=== PATIENT | female | born 2000 | race Caucasian/White ===

== ENCOUNTER → 2021-03-17 | Outpatient (CLI) | payer OTHER, MEDICAID ==
--- NOTE | 2021-03-17 10:01 | REP ---
INDICATION: ANATOMY SCAN COMPARISON: None. TECHNIQUE: Transabdominal obstetrical ultrasound with color Doppler evaluation. FINDINGS: Examination demonstrates a single live intrauterine in transverse presentation. motion is identified by technologist. Placenta is noted anterior and grade 1 without evidence for placenta previa or abruption. Amniotic fluid volume is normal. Cervix measures 4.5 cm in length and appears closed.. Selected gestational age: 20 weeks 2 days with GERMANIA 08/02/2021. Gestational age by current measurements 21 weeks 2 days with GERMANIA 07/26/2021. FHR equals 135 beats per minute. BPD: 5.1 cm at 21 weeks 3 days HC: 19.2 cm at 21 weeks 3 days AC: 15.9 cm at 21 weeks 0 days FL: 3.5 cm at 21 weeks 1 day HL: 3.3 cm at 21 weeks 0 days HC/AC: 1.21 Estimated weight 402 grams Anatomical assessment demonstrates normal structures including cranium, choroid plexus, cavum, cerebellum/posterior fossa, facial features, lungs, four-chamber heart/ventricular outflow tracts, diaphragm, stomach, cord insertion/three-vessel cord, kidneys/bladder, and extremities. IMPRESSION: Single live intrauterine in transverse lie. Limited assessment of the spine due to positioning. Remainder of the anatomical assessment is complete and normal. <Electronically signed by Torrey Brown > 03/17/21 [id number]
== END ==
LOC: M WHC 08:06
PROVIDERS: ATTEND Obstetrics & Gynecology
DX: Z36.89 Encounter for other specified antenatal screening (principal); Z3A.18 18 weeks gestation of pregnancy

== ENCOUNTER → 2021-04-11 | Outpatient (CLI) | payer OTHER, MEDICAID ==
--- NOTE | 2021-04-11 09:54 | REP ---
INDICATION: F/U ANATOMY. COMPARISON: 03/17/2021. TECHNIQUE: Real-time sonographic evaluation of the gravid uterus performed. FINDINGS: Estimated gestational age is23 weeks 6 days, EDC 08/02/2021. Today's measurements indicate appropriate growth. heart rate 140 beats per minute. Biometry chart: BPD: 63 mm, 25 weeks 2 days, 81st percentile. HC: 228 mm, 24 weeks 6 days, 71st percentile AC: 196 mm, 24 weeks 2 days, 58th percentile Femur length: 42 mm, 23 weeks 4 days, 43rd percentile HC to AC ratio: 1.17, normal range 1.03-1.22. Estimated weight: 662g, 53rd percentile. The spine is visualized and is grossly unremarkable. IMPRESSION: Viable single intrauterine gestation as above. The spine is visualized and is grossly unremarkable. <Electronically signed by Juno Heard > 04/11/21 [id number]
== END ==
LOC: M WHC 07:00
PROVIDERS: ATTEND Obstetrics & Gynecology
DX: Z36.9 Encounter for antenatal screening, unspecified (principal); Z3A.25 25 weeks gestation of pregnancy

== ENCOUNTER → 2021-05-13 | Outpatient (CLI) | payer MEDICAID, OTHER ==
[2021-05-13 13:23] LABS: HEMATOCRIT 36.5 % (36.0-47.0); HEMOGLOBIN 12.1 g/dl (12.0-15.5); MEAN CORPUSCULAR HEMOGLOBIN 30.3 pg (27.0-33.0); MEAN CORPUSCULAR HGB CONC 33.2 g/dl (32.0-36.5); MEAN CORPUSCULAR VOLUME 91.5 fl (80.0-96.0); PLATELET COUNT, AUTOMATED 188 10^3/uL (150-450); RED BLOOD COUNT 3.99 10^6/uL (4.00-5.40); WHITE BLOOD COUNT 8.7 10^3/uL (4.0-10.0)
== END ==
LOC: M PLALAB 09:31
PROVIDERS: ATTEND Advanced Practice Midwife
DX: Z34.02 Encounter for supervision of normal first pregnancy, second trimester (principal)

== ENCOUNTER → 2021-05-13 | Outpatient (CLI) | payer MEDICAID, OTHER | LOC: M PLALAB 09:33 | PROVIDERS: ATTEND Obstetrics & Gynecology | DX: Z53.20 Procedure and treatment not carried out because of patient's decision for unspecified reasons (principal) ==

== ENCOUNTER → 2021-07-08 | Outpatient (REF) | payer OTHER, MEDICAID | LOC: M SFHCWAGY 12:41 | PROVIDERS: ATTEND Advanced Practice Midwife | DX: Z34.03 Encounter for supervision of normal first pregnancy, third trimester (principal) ==

== ENCOUNTER → 2021-07-23 | Outpatient (CLI) | payer OTHER, MEDICAID, MEDICARE | LOC: M LABSMTC 09:43 | PROVIDERS: ATTEND Anesthesiology | DX: U07.1 COVID-19 (principal) ==

== ENCOUNTER 2021-07-28 05:06 | Inpatient (IN) | payer OTHER, MEDICAID ==
[2021-07-28] VITALS (7 sets, daily range): BP systolic 115–139; BP diastolic 66–86
[~2021-07-28] VITALS: Ht 177.8 cm; Wt 95.5 kg
[2021-07-28] MEDS ORDERED: BICITRA 30ML SOLN UDC PO ONE (05:25)
[2021-07-28] MEDS ORDERED: OXYTOCIN INJ 10 UNITS/ML VIAL (J2590) IM PRN (05:25)
[2021-07-28] MEDS ORDERED: OXYTOCIN DRIP 30 UNITS in IV 1 EA IV PRN ×4 (05:25)
[2021-07-28] MEDS ORDERED: TRANEXAMIC ACID INJection 1,000 MG in NS 100 ML IV PRN (05:25)
[2021-07-28] MEDS ORDERED: LACTATED RINGER'S 1000 ML IV STA (05:25)
[2021-07-28] MEDS ORDERED: METHYLERGONOVINE MALEATE 0.2 MG/ML VIAL (J2210) IM PRN (05:25)
[2021-07-28] MEDS ORDERED: LR 1,000 ML IV SCH (05:25)
[2021-07-28] MEDS ORDERED: CARBOPROST TROMETHAMINE 250 MCG/ML AMP IM PRN (05:25)
[2021-07-28] MEDS ORDERED: ceFAZolin SOD 2 GM in IV 1 EA IV ONE (05:25)
[2021-07-28] MEDS ORDERED: PRENTAB9 PO (06:12)
[2021-07-28 06:18] LABS: HEMATOCRIT 35.5 % (36.0-47.0); HEMOGLOBIN 11.7 g/dl (12.0-15.5); MEAN CORPUSCULAR HEMOGLOBIN 28.7 pg (27.0-33.0); MEAN CORPUSCULAR VOLUME 87.2 fl (80.0-96.0); PLATELET COUNT, AUTOMATED 170 10^3/uL (150-450); RED BLOOD COUNT 4.07 10^6/uL (4.00-5.40); WHITE BLOOD COUNT 11.7 10^3/uL (4.0-10.0)
[2021-07-28] MEDS ORDERED: MORPHINE PRES-FREE INJ 10 MG/10 ML VIAL (J2274) As Ordered ONE (07:51)
[2021-07-28] MEDS ORDERED: ONDANSETRON 4MG/2ML VIAL As Ordered ONE (07:51)
[2021-07-28] MEDS ORDERED: METOCLOPRAMIDE INJ 10MG/2ML VIAL (J2765 PER 1) IV PRN (08:00)
[2021-07-28] MEDS ORDERED: NALBUPHINE HCL 10 MG/ML AMP (J2300) IV PRN (08:00)
[2021-07-28] MEDS ORDERED: diphenhydrAMINE 50MG/ML VIAL (J1200) IV PRN (08:00)
[2021-07-28] MEDS ORDERED: ONDANSETRON 4MG/2ML VIAL IV PRN ×2 (08:00→09:05)
[2021-07-28] MEDS ORDERED: NALOXONE INJ 0.4MG/1ML VIAL (J2310 PER 1MG) IV PRN ×2 (08:00)
[2021-07-28] MEDS ORDERED: ePHEDrine SULFATE 25 MG/5 ML(5MG/ML) SYRINGE As Ordered ONE (08:05)
[2021-07-28] MEDS ORDERED: OXYTOCIN 30 UNITS IN 0.9% NaCl 500ML IV BAG (J2590) As Ordered ONE ×2 (08:10→09:14)
[2021-07-28] MEDS ORDERED: KETOROLAC 60MG 2ML VIAL As Ordered ONE (08:46)
[2021-07-28] MEDS ORDERED: SIMETHICONE 80MG CHEW TAB PO PRN (09:05)
[2021-07-28] MEDS ORDERED: OXYTOCIN DRIP 30 UNITS in IV 1 EA IV SCH (09:05)
[2021-07-28] MEDS ORDERED: RHOGAM 300 MCG (1500 IU) INJ (J2790) IM SCH (09:05)
[2021-07-28] MEDS ORDERED: MEASLES,MUMPS,RUBELLA VACCINE INJ (MMR-II) (90707) SC SCH (09:05)
[2021-07-28] MEDS ORDERED: IBUP80TA PO (09:11)
[2021-07-28] MEDS ORDERED: PERCOCET PO (09:11)
[2021-07-28] MEDS ORDERED: DOCU100C16 PO (09:11)
[2021-07-28] MEDS ORDERED: PERCOCET 5MG/325MG TAB PO PRN (09:30)
[2021-07-28] MEDS ORDERED: fentaNYL 100 MCG/2 ML INJECTION (J3010) IV PRN (09:30)
[2021-07-28] MEDS: LR 1,000 ML IV SCH ×2 (13:22→17:05)
[2021-07-28] MEDS: KETOROLAC 30 MG/ML 1ML VIAL IV SCH ×2 (15:02→20:32)
[2021-07-28] MEDS: DOCUSATE SODIUM 100MG CAPSULE PO SCH (20:32)
[2021-07-29] MEDS: PERCOCET 5MG/325MG TAB PO PRN ×3 (00:37→19:57)
[2021-07-29] MEDS: LR 1,000 ML IV SCH (01:05)
[2021-07-29 02:00] VITALS: BP 139/79
[2021-07-29] MEDS: KETOROLAC 30 MG/ML 1ML VIAL IV SCH (03:19)
[2021-07-29 06:00] VITALS: BP 121/67
[2021-07-29 08:08] LABS: HEMATOCRIT 29.7 % (36.0-47.0); MEAN CORPUSCULAR HGB CONC 32.3 g/dl (32.0-36.5); MEAN CORPUSCULAR VOLUME 89.7 fl (80.0-96.0); PLATELET COUNT, AUTOMATED 138 10^3/uL (150-450); RED BLOOD COUNT 3.31 10^6/uL (4.00-5.40)
[2021-07-29 08:19] LABS: HEMOGLOBIN 9.6 g/dl (12.0-15.5)
[2021-07-29] MEDS: DOCUSATE SODIUM 100MG CAPSULE PO SCH ×2 (08:43→19:55)
[2021-07-29] MEDS: PRENATAL VITAMINS CHEWABLE TABLET PO SCH (08:43)
[2021-07-29 10:00] VITALS: BP 125/64
[2021-07-29] MEDS: IBUPROFEN 800 MG TAB PO SCH ×2 (10:30→18:45)
[2021-07-29 14:00] VITALS: BP 132/64
[2021-07-29 18:00] VITALS: BP 144/85
[2021-07-29 22:00] VITALS: BP 127/60
[2021-07-30 02:00] VITALS: BP 119/59
[2021-07-30] MEDS: IBUPROFEN 800 MG TAB PO SCH ×2 (02:47→11:36)
[2021-07-30 06:00] VITALS: BP 127/73
[2021-07-30] MEDS: PRENATAL VITAMINS CHEWABLE TABLET PO SCH (09:01)
[2021-07-30] MEDS: DOCUSATE SODIUM 100MG CAPSULE PO SCH (09:01)
[2021-07-30] MEDS: PERCOCET 5MG/325MG TAB PO PRN (09:02)
== END 2021-07-30 13:05 | disposition home or self-care (01) | DRG 788 ==
LOC: M LDI 05:06 → EDSTATUS 07:30 → M OBS 11:28
PROVIDERS: ADMIT Obstetrics & Gynecology; ATTEND Obstetrics & Gynecology
PROC: 10D00Z1 Extraction of Products of Conception, Low, Open Approach (ICD-10-PCS; principal; 2021-07-28 07:30)
DX: O32.1XX0 Maternal care for breech presentation, not applicable or unspecified (principal); Z3A.39 39 weeks gestation of pregnancy; Z37.0 Single live birth

== ENCOUNTER → 2023-06-08 | Outpatient (REF) | payer OTHER, MEDICAID, MEDICARE ==
[~2023-06-08] MED LIST: DOCU100C16 PO; IBUP80TA PO; PERCOCET PO; PRENTAB9 PO
[2023-06-08 16:37] LABS: APPEARANCE, URINE CLOUDY (CLEAR); BACTERIA, URINE AUTO 1+ (NEGATIVE); BILIRUBIN, URINE AUTO NEGATIVE (NEGATIVE); BLOOD, URINE BLOOD 1+ (NEGATIVE); COLOR, URINE AMBER (YELLOW); GLUCOSE, URINE (UA) AUTO NEGATIVE (NEGATIVE); KETONE, URINE AUTO 1+ mg/dL (NEGATIVE); LEUKOCYTE ESTERASE, URINE AUTO 3+ (NEGATIVE); MUCUS, URINE SMALL (NEGATIVE); NITRITE, URINE AUTO NEGATIVE (NEGATIVE); PROTEIN, URINE AUTO 2+ mg/dL (NEGATIVE); RBC, URINE AUTO 76 /HPF (0-3); SPECIFIC GRAVITY URINE AUTO 1.021 (1.002-1.035); SQUAMOUS EPITHELIAL CELL UR AU 18 /HPF (0-6); UROBILINOGEN, URINE AUTO 0.2 mg/dL (0.0-2.0); WBC, URINE AUTO TNTC /HPF (0-3)
== END ==
LOC: M LAB REF 15:41
PROVIDERS: ATTEND Physician Assistant
DX: N30.01 Acute cystitis with hematuria (principal)

== ENCOUNTER → 2023-06-16 | Outpatient (CLI) | payer OTHER, MEDICAID ==
[2023-06-16 10:52] LABS: HEMATOCRIT 37.5 % (36.0-47.0); HEMOGLOBIN 12.5 g/dl (12.0-15.5); MEAN CORPUSCULAR HEMOGLOBIN 29.3 pg (27.0-33.0); MEAN CORPUSCULAR HGB CONC 33.3 g/dl (32.0-36.5); MEAN CORPUSCULAR VOLUME 87.8 fl (80.0-96.0); PLATELET COUNT, AUTOMATED 189 10^3/uL (150-450); RED BLOOD COUNT 4.27 10^6/uL (4.00-5.40)
[2023-06-16 11:32] LABS: HIV 1&2 SCREEN NEGATIVE (NEGATIVE)
[2023-06-16 11:39] LABS: HEPATITIS C VIRUS ABY INDEX 0.02 INDEX (<0.8)
== END ==
LOC: M PLALAB 07:14
PROVIDERS: ATTEND Advanced Practice Midwife
DX: O34.211 Maternal care for low transverse scar from previous cesarean delivery (principal)

== ENCOUNTER → 2023-08-25 | Outpatient (REF) | payer OTHER, MEDICAID, MEDICARE ==
[2023-08-25 15:40] LABS: CHLAMYDIA DNA AMPLIFICATION NEGATIVE (NEGATIVE); GC DNA AMPLIFICATION NEGATIVE (NEGATIVE)
== END ==
LOC: M SFHCWAGY 12:48
PROVIDERS: ATTEND Advanced Practice Midwife
DX: O34.211 Maternal care for low transverse scar from previous cesarean delivery (principal)

== ENCOUNTER → 2023-09-01 | Outpatient (CLI) | payer OTHER, MEDICAID | LOC: M WHC 14:26 | PROVIDERS: ATTEND Obstetrics & Gynecology | DX: O34.219 Maternal care for unspecified type scar from previous cesarean delivery (principal) ==

== ENCOUNTER → 2023-10-05 | Outpatient (CLI) | payer BC | LOC: M PLALAB 08:07 | PROVIDERS: ATTEND Obstetrics & Gynecology | DX: O34.211 Maternal care for low transverse scar from previous cesarean delivery (principal) ==

== ENCOUNTER → 2023-10-05 | Outpatient (CLI) | payer BC | LOC: M WHC 06:52 | PROVIDERS: ATTEND Obstetrics & Gynecology | DX: O34.211 Maternal care for low transverse scar from previous cesarean delivery (principal) ==

== ENCOUNTER → 2023-11-03 | Outpatient (CLI) | payer BC, OTHER ==
[~2023-11-03] MED LIST changes: +CALC500C15 PO; +NITR-67 PO
[2023-11-03 09:49] LABS: HEMATOCRIT 33.8 % (36.0-47.0); HEMOGLOBIN 11.2 g/dl (12.0-15.5); MEAN CORPUSCULAR HEMOGLOBIN 29.1 pg (27.0-33.0); MEAN CORPUSCULAR HGB CONC 33.1 g/dl (32.0-36.5); MEAN CORPUSCULAR VOLUME 87.8 fl (80.0-96.0); PLATELET COUNT, AUTOMATED 177 10^3/uL (150-450); RED BLOOD COUNT 3.85 10^6/uL (4.00-5.40); WHITE BLOOD COUNT 8.2 10^3/uL (4.0-10.0)
== END ==
LOC: M PLALAB 08:16
PROVIDERS: ATTEND Obstetrics & Gynecology
DX: O34.211 Maternal care for low transverse scar from previous cesarean delivery (principal)

== ENCOUNTER → 2023-11-03 | Outpatient (REF) | payer OTHER | LOC: M LAB REF 08:53 | PROVIDERS: ATTEND Physician Assistant | DX: R30.0 Dysuria (principal) ==

== ENCOUNTER 2023-11-04 13:49 | Outpatient (CLI) | payer BC, OTHER ==
[~2023-11-04] VITALS: Ht 177.8 cm; Wt 95.1 kg
[~2023-11-04 13:49] MED LIST changes: -CALC500C15 PO; -NITR-67 PO
[2023-11-04 14:10] VITALS: BP 123/74
[2023-11-04] MEDS ORDERED: CALC500C15 PO (14:16)
[2023-11-04] MEDS ORDERED: HOME MED LIST COMPLETE! XX SCH (14:20)
[2023-11-04] MEDS ORDERED: NITR-67 PO (15:05)
== END 2023-11-04 15:05 ==
LOC: M LDO 13:49
PROVIDERS: ATTEND Obstetrics & Gynecology
DX: O23.13 Infections of bladder in pregnancy, third trimester (principal); O34.219 Maternal care for unspecified type scar from previous cesarean delivery; Z3A.30 30 weeks gestation of pregnancy
CPT/HCPCS: 59025; 81001; 87088; 87186; G0463

== ENCOUNTER → 2023-12-07 | Outpatient (REF) | payer BC, OTHER, MEDICAID ==
[~2023-12-07] MED LIST changes: +CALC500C15 PO; +NITR-67 PO
== END ==
LOC: M SFHCWAGY 15:04
PROVIDERS: ATTEND Specialist
DX: Z34.83 Encounter for supervision of other normal pregnancy, third trimester (principal); R30.0 Dysuria

== ENCOUNTER 2023-12-19 23:16 | Outpatient (CLI) | payer BC, OTHER, MEDICAID ==
[~2023-12-19] VITALS: Ht 177.8 cm; Wt 101.3 kg
[2023-12-19 23:23] VITALS: BP 140/82
[2023-12-20 00:15] VITALS: BP 134/76
[2023-12-20] MEDS ORDERED: AMOX875T2 PO (01:03)
[2023-12-20] MEDS: AUGMENTIN 875 MG TAB PO ONE (01:16)
== END 2023-12-20 01:17 | disposition home or self-care (01) ==
LOC: M LDO 23:16
PROVIDERS: ATTEND Obstetrics & Gynecology
DX: O23.13 Infections of bladder in pregnancy, third trimester (principal); O34.219 Maternal care for unspecified type scar from previous cesarean delivery; Z3A.37 37 weeks gestation of pregnancy
CPT/HCPCS: 59025; 81001; 87086; G0463

== ENCOUNTER 2023-12-31 05:30 | Inpatient (IN) | payer BC, OTHER ==
[~2023-12-31] VITALS: Ht 177.8 cm; Wt 99.3 kg
[2023-12-31] VITALS (9 sets, daily range): BP systolic 118–138; BP diastolic 59–77; TEMP 96.8; O2SAT 99–100
[~2023-12-31 05:30] MED LIST changes: +AMOX875T2 PO
[2023-12-31 06:33] LABS: HEMATOCRIT 31.2 % (36.0-47.0); HEMOGLOBIN 9.9 g/dl (12.0-15.5); MEAN CORPUSCULAR HEMOGLOBIN 26.1 pg (27.0-33.0); MEAN CORPUSCULAR HGB CONC 31.7 g/dl (32.0-36.5); MEAN CORPUSCULAR VOLUME 82.3 fl (80.0-96.0); PLATELET COUNT, AUTOMATED 192 10^3/uL (150-450); RED BLOOD COUNT 3.79 10^6/uL (4.00-5.40); WHITE BLOOD COUNT 10.3 10^3/uL (4.0-10.0)
[2023-12-31] MEDS: LACTATED RINGER'S 1000 ML IV STA (06:51)
[2023-12-31] MEDS: LR 1,000 ML IV SCH ×2 (06:54→13:00)
[2023-12-31] MEDS ORDERED: PHENYLephrine 500MCG 5ML (100MCG/ML) SYRINGE As Ordered ONE (07:17)
[2023-12-31] MEDS ORDERED: OXYTOCIN 30UNITS IN 0.9% NaCl 500ML IV BAG As Ordered ONE (07:17)
[2023-12-31] MEDS ORDERED: ePHEDrine SULFATE 25 MG/5 ML(5MG/ML) SYRINGE As Ordered ONE (07:17)
[2023-12-31] MEDS ORDERED: MORPHINE PRES-FREE INJ 10 MG/10 ML VIAL As Ordered ONE (07:18)
[2023-12-31] MEDS: ceFAZolin SOD 2 GM in IV 1 EA IV ONE (07:27)
[2023-12-31] MEDS: BICITRA 30ML SOLN UDC PO ONE (07:36)
[2023-12-31] MEDS ORDERED: ONDANSETRON 4MG 2ML VIAL As Ordered ONE (08:05)
[2023-12-31] MEDS ORDERED: KETOROLAC 60MG 2ML VIAL As Ordered ONE (08:05)
[2023-12-31] MEDS ORDERED: SIMETHICONE 80MG CHEW TAB PO PRN (08:35)
[2023-12-31] MEDS ORDERED: RHO(D) IMMUNE GLOBULIN/MALTOSE 500MCG(2500IU)/2.2ML VIAL (WINRHO) IM SCH (08:35)
[2023-12-31] MEDS ORDERED: PERCOCET 5MG/325MG TAB PO PRN (08:35)
[2023-12-31] MEDS ORDERED: ONDANSETRON 4MG 2ML VIAL IV PRN (08:35)
[2023-12-31] MEDS ORDERED: OXYC1TAB23 PO (08:41)
[2023-12-31] MEDS ORDERED: IBUP80TA PO (08:41)
[2023-12-31 08:44] LABS: CORD GAS ABE A -4.4; CORD GAS HCO3 A 22.3 MMOL/L; CORD GAS O2 SAT A 77.7 %; CORD GAS PCO2 A 46.5 mmHg; CORD GAS PH A 7.298 UNITS; CORD GAS PO2 A 34.2 mmHg; CORD GAS SBC A 20.4 MMOL/L; CORD GAS TCO2 A 23.7 MMOL/L
[2023-12-31] MEDS ORDERED: **NOTE PATIENT COMMENT** MISC XX SCH (08:45)
[2023-12-31] MEDS ORDERED: NALOXONE INJ 0.4MG/1ML VIAL IV PRN ×2 (08:45)
[2023-12-31] MEDS ORDERED: METOCLOPRAMIDE INJ 10MG/2ML VIAL IV PRN (08:45)
[2023-12-31] MEDS: OXYTOCIN DRIP 30 UNITS in IV 1 EA IV SCH (08:45)
[2023-12-31 08:46] LABS: CORD GAS ABE V -4.4; CORD GAS HCO3 V 20.6 MMOL/L; CORD GAS O2 SAT V 79.5 %; CORD GAS PCO2 V 37.9 mmHg; CORD GAS PH V 7.353 UNITS; CORD GAS PO2 V 34.2 mmHg; CORD GAS SBC V 20.4 MMOL/L; CORD GAS TCO2 V 21.8 MMOL/L
[2023-12-31] MEDS: PRENATAL VITAMINS CHEWABLE TABLET PO SCH (09:00)
[2023-12-31] MEDS: SLF 3 ML SYR IV SCH (09:00)
[2023-12-31] MEDS: diphenhydrAMINE 50MG/ML VIAL IV PRN (11:26)
[2023-12-31] MEDS: KETOROLAC 30 MG/ML 1ML VIAL IV SCH (13:02)
[2024-01-01 02:00] VITALS: BP 114/58; O2SAT 98
[2024-01-01 06:00] VITALS: BP 118/63; O2SAT 98
[2024-01-01 06:52] LABS: HEMATOCRIT 28.7 % (36.0-47.0); MEAN CORPUSCULAR HEMOGLOBIN 26.2 pg (27.0-33.0); MEAN CORPUSCULAR HGB CONC 31.4 g/dl (32.0-36.5); MEAN CORPUSCULAR VOLUME 83.4 fl (80.0-96.0); PLATELET COUNT, AUTOMATED 156 10^3/uL (150-450); RED BLOOD COUNT 3.44 10^6/uL (4.00-5.40); WHITE BLOOD COUNT 10.5 10^3/uL (4.0-10.0)
[2024-01-01 09:37] VITALS: BP 125/65; O2SAT 99
[2024-01-01] MEDS: IBUPROFEN 800 MG TAB PO SCH (10:00)
[2024-01-01] MEDS: PERCOCET 5MG/325MG TAB PO PRN (12:14)
[2024-01-01 14:00] VITALS: BP 122/62; O2SAT 81
[2024-01-01 18:00] VITALS: BP 137/81; O2SAT 98
[2024-01-01 22:00] VITALS: BP 131/80; O2SAT 100
[2024-01-02] MEDS: DOCUSATE SODIUM 100MG CAPSULE PO PRN (01:45)
[2024-01-02 06:00] VITALS: BP 120/59; O2SAT 99
[2024-01-02] MEDS: MEASLES,MUMPS,RUBELLA VACCINE INJ (MMR-II) SC.IMMUN ONE (07:34)
== END 2024-01-02 13:00 | disposition home or self-care (01) | DRG 540 ==
LOC: M LDI 05:30 → M OBS 10:08
PROVIDERS: ADMIT Specialist; ATTEND Specialist
PROC: 10D00Z1 Extraction of Products of Conception, Low, Open Approach (ICD-10-PCS; principal; 2023-12-31 07:30)
DX: O34.211 Maternal care for low transverse scar from previous cesarean delivery (principal); Z3A.39 39 weeks gestation of pregnancy; Z37.0 Single live birth

== ENCOUNTER → 2024-01-06 | Outpatient (REF) | payer BC, OTHER ==
[~2024-01-06] MED LIST changes: +OXYC1TAB23 PO
== END ==
LOC: M SFHCWAGY 10:08
PROVIDERS: ATTEND Specialist
DX: R35.0 Frequency of micturition (principal)

== ENCOUNTER → 2025-02-20 | Outpatient (REF) | payer BC | LOC: M PLALAB 14:11 | PROVIDERS: ATTEND Advanced Practice Midwife | DX: Z34.81 Encounter for supervision of other normal pregnancy, first trimester (principal); Z53.9 Procedure and treatment not carried out, unspecified reason ==

== ENCOUNTER → 2025-02-27 | Outpatient (CLI) | payer OTHER ==
[2025-02-27 12:01] LABS: PLATELET COUNT, AUTOMATED 202 10^3/uL (150-450)
[2025-02-27 12:57] LABS: HIV 1&2 SCREEN NEGATIVE (NEGATIVE)
[2025-02-27 13:05] LABS: HEPATITIS C VIRUS ABY INDEX < 0.02 INDEX (<0.8)
[2025-02-27 13:19] LABS: Trichomonas vaginalis (AMP) NOT DETECTED (NEGATIVE)
[2025-02-27 13:43] LABS: GC DNA AMPLIFICATION NEGATIVE (NEGATIVE)
== END ==
LOC: M PLALAB 09:30
PROVIDERS: ATTEND Advanced Practice Midwife
DX: Z34.81 Encounter for supervision of other normal pregnancy, first trimester (principal)

== ENCOUNTER → 2025-05-01 | Outpatient (CLI) | payer OTHER | LOC: M WHC 09:35 | PROVIDERS: ATTEND Obstetrics & Gynecology | DX: Z34.92 Encounter for supervision of normal pregnancy, unspecified, second trimester (principal) ==

== ENCOUNTER → 2025-06-04 | Outpatient (CLI) | payer OTHER ==
[2025-06-04 18:19] LABS: PLATELET COUNT, AUTOMATED 226 10^3/uL (150-450)
[2025-06-04 18:20] LABS: GLUCOSE CHALLENGE TEST 1 HOUR 81 MG/DL (LESS THAN 140)
[2025-06-04 18:57] LABS: HIV 1&2 SCREEN NEGATIVE (NEGATIVE)
[2025-06-04 19:05] LABS: HEPATITIS C VIRUS ABY INDEX < 0.02 INDEX (<0.8)
[2025-06-04 19:50] LABS: Trichomonas vaginalis (AMP) NOT DETECTED (NEGATIVE)
[2025-06-04 20:14] LABS: GC DNA AMPLIFICATION NEGATIVE (NEGATIVE)
== END ==
LOC: M PLALAB 14:56
PROVIDERS: ATTEND Student in an Organized Health Care Education/Training Program
DX: Z34.80 Encounter for supervision of other normal pregnancy, unspecified trimester (principal)

== ENCOUNTER → 2025-06-11 | Outpatient (CLI) | payer BC, OTHER | LOC: M WHC 14:20 | PROVIDERS: ATTEND Student in an Organized Health Care Education/Training Program | DX: Z34.80 Encounter for supervision of other normal pregnancy, unspecified trimester (principal) ==